=== PATIENT | female | born 1980 | race Caucasian/White ===

== ENCOUNTER 2018-03-07 11:31 | Emergency (ER) | payer OTHER ==
--- NOTE | 2018-03-07 11:51 | CPEKG ---
Heart Rate: 82 RR Interval: 732 P-R Interval: 148 QRSD Interval: 92 QT Interval: 380 QTC Interval: 444 P [place]: 70 QRS [place]: 76 T Wave [place]: 2 EKG Severity - NORMAL ECG - EKG Impression: SINUS RHYTHM Electronically Signed By: Eugene Dias 09-Mar-2018 06:07:31
[2018-03-07 11:56] LABS: PLATELET COUNT 259 10^3/uL (150-400)
[2018-03-07] MEDS ORDERED: NS 1,000 ML IV ONE (12:12)
[2018-03-07] MEDS ORDERED: HYOSCYAMINE SULFATE 0.125 MG TAB PO ONE (12:12)
[2018-03-07] MEDS ORDERED: LIDOCAINE 2% VISCOUS 15 ML UDCUP PO ONE (12:12)
[2018-03-07] MEDS ORDERED: MAG HYDROX/AL HYDROX/SIMETH 30 ML UDCUP PO ONE (12:12)
[2018-03-07] MEDS ORDERED: PANTOPRAZOLE SODIUM 40 MG VIAL IVP ONE (12:12)
--- NOTE | 2018-03-07 12:20 | EDPHY ---
H & P Stated Complaint: upper abd pain since thursday Time Seen by Provider: 03/07/18 11:45 HPI/ROS: CHIEF COMPLAINT: Epigastric discomfort, low chest discomfort for 5 days HISTORY OF PRESENT ILLNESS: This is a healthy 37-year-old female reports that 5 days ago she began to note a discomfort in her chest, under her lower sternum. Described as a aching sensation. [place] reminiscent of her heartburn which she had when she was . Pain was persistent throughout the day. Not associated with any shortness of breath, palpitations, nausea, or vomiting. Patient actually went for her typical 5 mi run with no difficulties. Discomfort continued for the next 3 days, and seemed to gradually moved more to the epigastric region. She reports this morning she woke with epigastric pain. Very slight nausea. No vomiting. Feel little bit of pain between her shoulder blades. No lower abdominal discomfort. No flank pain. No urinary complaints. Patient took Tums which little change in the discomfort. She does notice that taking a deep breath makes her epigastric discomfort worse. She has no history of pancreatitis, gallstone disease, cardiac issues, or pulmonary embolism. No fever, chills, shortness of breath, palpitations, vomiting, diarrhea, urinary complaints, headache, lightheadedness. REVIEW OF SYSTEMS: Aside from elements discussed in the HPI, a comprehensive 10-point review of systems was reviewed and is negative. PAST MEDICAL HISTORY: , HELLP syndrome with her youngest child. SOCIAL HISTORY: . Nonsmoker. Did have alcohol last night, no illicit drug use. VITAL SIGNS Reviewed by me. GENERAL: Well-developed, well-nourished, resting comfortably in no respiratory distress. HEENT: Atraumatic. Eyes: No icterus, no injection. Mouth: moist mucous membranes. No erythema or lesions. Neck: supple with no adenopathy. CHEST: No chest wall tenderness. No crepitus on the sternum. LUNGS: Clear to auscultation bilaterally, no wheezes, rhonchi or rales. CARDIAC: Regular rate and rhythm, no rubs, murmurs or gallops. ABDOMEN: Soft, epigastric discomfort to palpation. Slight right upper quadrant tenderness. Slight left upper quadrant tenderness. No guarding or rebound. No distension. Bowel sounds normal. BACK: No CVA tenderness. EXTREMITIES: No trauma. No edema. Range of motion is normal throughout. NEURO: Alert and oriented, grossly nonfocal. SKIN: Warm and dry, no rash. PSYCHIATRIC: Normal mentation, no agitation. - Personal History LMP (Females 10-55): 8-14 Days Ago Tetanus Vaccine Date: 11/02 - Medical/Surgical History Other PMH: HELLP SYN 2014 - Social History Smoking Status: Never smoked Constitutional: Initial Vital Signs Temperature (C) 37.5 C 03/07/18 11:35 Heart Rate 88 03/07/18 11:35 Respiratory Rate 18 03/07/18 11:35 Blood Pressure 148/93 H 03/07/18 11:35 O2 Sat (%) 96 03/07/18 11:35 O2 Delivery Mode Room Air Allergies/Adverse Reactions: No Known Allergies Allergy (Verified 03/07/18 11:34) Home Medications: Medication Instructions Recorded NK [No Known Home Meds] 03/07/18 Medical Decision Making - Diagnostics EKG Interpretation: 12-LEAD EKG: Please see the full report in [facility]. My interpretation: Normal sinus rhythm, isolated T-wave inversion in lead 3. Imaging Results: Imaging Impressions Chest X-Ray 03/07/18 12:11 Impression: No evidence of acute cardiopulmonary abnormality. Imaging: I viewed and interpreted images myself ED Course/Re-evaluation: 37-year-old female presenting with low substernal upper epigastric discomfort which has been present for several days. Evaluation the emergency department: Normal CBC, negative lipase, normal LFTs. Negative troponin. Nonischemic EKG. Normal chest x-ray. Negative D-dimer. Bedside ultrasound performed by myself to evaluate for cholelithiasis demonstrates normal appearing gallbladder with no gallstones seen. Patient received normal saline, GI cocktail, and Protonix. She reports minimal improvement in her discomfort. Toradol was administered. On re-examination at 130 pm., the patient continues to report discomfort in the epigastrium which hurts when she takes a deep breath as well as discomfort between the shoulder blades. Describes a burning sensation. No numbness or tingling in her legs. No numbness or tingling on the abdomen. No spinal tenderness to palpation. We discussed ultrasound examination or CT examination. We discussed pain meds with close follow-up. Patient's is still out of town. She would like to be discharged home with pain meds to use as needed and close follow-up with [facility] gastroenterology. Differential Diagnosis: After obtaining the patient's history and performing an examination, differential diagnosis considered included but was not limited to appendicitis, cholecystitis, gastritis, pancreatitis, kidney stones, urinary tract infections and other causes. - Data Points Laboratory Results: Laboratory Results 03/07/18 11:50 03/07/18 11:50 03/07/18 03/07/18 03/07/18 13:40 11:50 11:50 WBC RBC Hgb Hct MCV MCH MCHC RDW Plt Count MPV Neut % (Auto) Lymph % (Auto) [place] % (Auto) Eos % (Auto) Baso % (Auto) Nucleat RBC Rel Count Absolute Neuts (auto) Absolute Lymphs (auto) Absolute Monos (auto) Absolute Eos (auto) Absolute Basos (auto) Absolute Nucleated RBC Immature Gran % Immature Gran # D-Dimer Sodium Potassium Chloride Carbon Dioxide Anion Gap BUN Creatinine Estimated GFR Glucose Calcium Total Bilirubin AST ALT Alkaline Phosphatase Troponin I < 0.012 ng/mL ng/mL (0.000-0.034) Total Protein Albumin Lipase Beta HCG, Qual NEGATIVE Urine Color Pending Urine Appearance Pending Urine pH Pending Ur Specific [place] Pending Urine Protein Pending Urine Ketones Pending Urine Blood Pending Urine Nitrate Pending Urine Bilirubin Pending Urine Urobilinogen Pending Ur Leukocyte Esterase Pending Urine Glucose Pending H. pylori IgG Antibody NEGATIVE (NEG) 03/07/18 03/07/18 03/07/18 11:50 11:50 11:50 WBC 8.07 10^3/uL 10^3/uL (3.80-9.50) RBC 4.50 10^6/uL 10^6/uL (4.18-5.33) Hgb 13.9 g/dL g/dL (12.6-16.3) Hct 41.0 % % (38.0-47.0) MCV 91.1 fL fL (81.5-99.8) MCH 30.9 pg pg (27.9-34.1) MCHC 33.9 g/dL g/dL (32.4-36.7) RDW 13.2 % % (11.5-15.2) Plt Count 259 10^3/uL 10^3/uL (150-400) MPV 9.3 fL fL (8.7-11.7) Neut % (Auto) 67.1 % % (39.3-74.2) Lymph % (Auto) 24.9 % % (15.0-45.0) [place] % (Auto) 6.8 % % (4.5-13.0) Eos % (Auto) 0.6 % % (0.6-7.6) Baso % (Auto) 0.4 % % (0.3-1.7) Nucleat RBC Rel Count 0.0 % % (0.0-0.2) Absolute Neuts (auto) 5.41 10^3/uL 10^3/uL (1.70-6.50) Absolute Lymphs (auto) 2.01 10^3/uL 10^3/uL (1.00-3.00) Absolute Monos (auto) 0.55 10^3/uL 10^3/uL (0.30-0.80) Absolute Eos (auto) 0.05 10^3/uL 10^3/uL (0.03-0.40) Absolute Basos (auto) 0.03 10^3/uL 10^3/uL (0.02-0.10) Absolute Nucleated RBC 0.00 10^3/uL 10^3/uL (0-0.01) Immature Gran % 0.2 % % (0.0-1.1) Immature Gran # 0.02 10^3/uL 10^3/uL (0.00-0.10) D-Dimer < 0.27 ug/mLFEU ug/mLFEU (0.00-0.50) Sodium 141 mEq/L mEq/L (135-145) Potassium 4.0 mEq/L mEq/L (3.3-5.0) Chloride 100 mEq/L mEq/L (97-110) Carbon Dioxide 30 mEq/l mEq/l (22-31) Anion Gap 11 mEq/L mEq/L (8-16) BUN 14 mg/dL mg/dL (7-23) Creatinine 0.7 mg/dL mg/dL (0.6-1.0) Estimated GFR > 60 Glucose 88 mg/dL mg/dL (70-100) Calcium 9.5 mg/dL mg/dL (8.5-10.4) Total Bilirubin 0.7 mg/dL mg/dL (0.1-1.4) AST 16 IU/L IU/L (14-46) ALT 14 IU/L IU/L (9-52) Alkaline Phosphatase 37 IU/L L IU/L (38-126) Troponin I Total Protein 7.5 g/dL g/dL (6.3-8.2) Albumin 4.2 g/dL g/dL (3.5-5.0) Lipase 151 IU/L IU/L (23-300) Beta HCG, Qual Urine Color Urine Appearance Urine pH Ur Specific [place] Urine Protein Urine Ketones Urine Blood Urine Nitrate Urine Bilirubin Urine Urobilinogen Ur Leukocyte Esterase Urine Glucose H. pylori IgG Antibody Medications Given: Discontinued Medications Al Hydroxide/Mg Hydroxide (Maalox Susp) 30 ml PO ONCE ONE Stop: 03/07/18 12:13 Last Admin: 03/07/18 12:29 Dose: 30 ml Dicyclomine HCl (Bentyl) 20 mg PO EDNOW ONE Stop: 03/07/18 12:53 Last Admin: 03/07/18 13:38 Dose: 20 mg Hyoscyamine Sulfate (Levsin, Hyomax-Sl) 0.25 mg PO ONCE ONE Stop: 03/07/18 12:13 Last Admin: 03/07/18 12:30 Dose: 0.25 mg Sodium Chloride (Ns) 1,000 mls @ 0 mls/hr IV EDNOW ONE; Wide Open PRN Reason: Protocol Stop: 03/07/18 12:13 Last Admin: 03/07/18 12:31 Dose: 1,000 mls Ketorolac Tromethamine (Toradol) 15 mg IVP EDNOW ONE Stop: 03/07/18 12:53 Last Admin: 03/07/18 13:03 Dose: 15 mg Lidocaine (Lidocaine 2% Viscous) 15 ml PO ONCE ONE Stop: 03/07/18 12:13 Last Admin: 03/07/18 12:29 Dose: 15 ml Pantoprazole Sodium (Protonix) 40 mg IVP EDNOW ONE Stop: 03/07/18 12:13 Last Admin: 03/07/18 12:31 Dose: 40 mg Departure - Departure Disposition: Home, Routine, Self-Care Clinical Impression: Abdominal pain Qualifiers: Abdominal location: epigastric Qualified Code(s): R10.13 - Epigastric pain Condition: Good Instructions: Gastritis (ED), Diet for Stomach Ulcers and Gastritis (ED) Additional Instructions: No definitive cause of your discomfort has been identified. It is possible it is due to gallstones or to inflammation in the stomach. Please begin taking omeprazole (Prilosec) each evening for the next 2 weeks. You could also try taking Maalox 30 min before meals. You may take hydrocodone as needed for severe pain. You have also been given Zofran to use as needed for nausea which may accompany the pain pills. Please follow up with primary care physician as soon as possible. You been given referral to Dr. Amanda Jimenez. When you contact her office, be sure she is aware that this is an emergency department follow-up visit for abdominal pain. You have also been given referral to Dr. Diamond with [facility]. Please return to the emergency department or seek care urgently if your symptoms are worsening despite the above treatment. Please be seen if you developed fevers, vomiting, shortness of breath, numbness and tingling in the legs, or other concerns. Referrals: Amanda Jimenez MD [Medical Doctor] - As per Instructions Austin Diamond MD [Medical Doctor] - As per Instructions
[2018-03-07] MEDS ORDERED: KETOROLAC 15 MG/1 ML SDV IVP ONE (12:52)
[2018-03-07] MEDS: DICYCLOMINE 10 MG CAP PO ONE ×2 (13:00→13:38)
[2018-03-07] MEDS ORDERED: HYDROCOD/APAP 5/325 PREPACK#6 BTL TAKEHOME ONE (13:52)
[2018-03-07] MEDS ORDERED: ONDANSETRON 4MG PREPACK#2 BTL TAKEHOME ONE (13:52)
[2018-03-07 13:56] VITALS: BP 122/67
== END 2018-03-07 14:18 | disposition home or self-care (01) ==
LOC: CED 11:31
DX: R10.13 Epigastric pain (principal); E86.9 Volume depletion, unspecified
CPT/HCPCS: 71046-PO; 80053-PO; 81003-PO; 81015-PO; 83690-PO; 84484-PO; 84703-PO; 85025-PO; 85378-PO; 86677-PO; 96374; J1885